=== PATIENT | male | born 1935 | race African-American/Black ===

== ENCOUNTER → 2024-01-13 | Day surgery (SDC) | payer MEDICARE, MEDICAID ==
[~2024-01-13] VITALS: Ht 179.1 cm; Wt 77.1 kg
[~2024-01-13] MED LIST: AMLO10TA80 PO; BUPIVACAINE HCL/PF 0.5% (5MG/ML) 10ML ONE; CEFAZOLIN SODIUM 1000MG/VIAL ONE; COLC0.6C PO; DEXAMETHASONE 4MG/ML 1ML VIAL ONE; ETOMIDATE 2MG/ML 10ML VIAL IV ONE; FENTANYL CITRATE/PF 50MCG/ML 2ML VIAL ONE; FERR325T6 PO; HYDR-4009 PO; LABETALOL 5MG/ML SYR 20 MG/4 ML SYRINGE IV PRN; LACTATED RINGERS 1,000 ML IV SCH; MEPERIDINE HCL/PF 25MG/ML CPJ IV PRN; MIDAZOLAM HCL 2 MG/2 ML VIAL ONE; ONDANSETRON HCL 4MG/2ML INJ IV PRN; ONDANSETRON HCL 4MG/2ML INJ ONE; PROPOFOL 200MG/20ML VIAL IV ONE; TAMS-11 PO
[2024-01-13 06:29] LABS: PARTIAL THROMBOPLASTIN TIME 24.6 sec (23.4-31.0); PROTHROMBIN TIME 10.9 sec (9.6-11.0)
[2024-01-13 09:57] VITALS: BP 159/74; PULSE 67; RESP 15
[2024-01-13] MEDS: HYDROMORPHONE HCL/PF 2MG/ML CPJ IV PRN (09:57)
== END | disposition home or self-care (01) ==
LOC: OR 05:33
PROVIDERS: ATTEND Surgery
DX: K40.90 Unilateral inguinal hernia, without obstruction or gangrene, not specified as recurrent (principal); I11.9 Hypertensive heart disease without heart failure; N40.0 Benign prostatic hyperplasia without lower urinary tract symptoms; M10.9 Gout, unspecified; Z86.2 Personal history of diseases of the blood and blood-forming organs and certain disorders involving the immune mechanism; Z79.899 Other long term (current) drug therapy; Z98.890 Other specified postprocedural states
CPT/HCPCS: 49505; 85610; 85730; 36415; J3010; J3490 ×2; J0690; J1100; J2250; J2405; J2704; J1170; J7030; C1781